=== PATIENT | female | born 1995 | race African-American/Black ===

== ENCOUNTER 2019-05-05 13:53 | Emergency (ER) | payer OTHER ==
[~2019-05-05] VITALS: Ht 177.8 cm; Wt 79.2 kg
[2019-05-05 13:53] VITALS: BP 128/76
--- NOTE | 2019-05-05 14:31 | REP ---
Right hand series: Four views. History: Trauma. Findings: Four views right hand show overall normal mineralization. No fracture, subluxation, or opaque foreign body is seen. Impression: Negative radiographs of the right hand. Electronically Signed by Sha Moy MD 05/05/2019 02:22 P
== END 2019-05-05 15:57 | disposition home or self-care (01) ==
LOC: M ED 13:53
DX: S60.031A Contusion of right middle finger without damage to nail, initial encounter (principal); S60.041A Contusion of right ring finger without damage to nail, initial encounter; W51.XXXA Accidental striking against or bumped into by another person, initial encounter; Y92.9 Unspecified place or not applicable; Y93.89 Activity, other specified; Y99.9 Unspecified external cause status; F17.200 Nicotine dependence, unspecified, uncomplicated; F12.10 Cannabis abuse, uncomplicated; Z91.89 Other specified personal risk factors, not elsewhere classified